=== PATIENT | male | born 1965 | race Caucasian/White ===

== ENCOUNTER 2017-09-29 18:47 | Emergency (ER) | payer OTHER ==
[2017-09-29] MEDS ORDERED: Sodium Chloride 0.9% 10 ML Syringe FLUSH PRN (19:22)
[2017-09-29] MEDS ORDERED: methylPREDNISolone Sodium Succinate 125 MG/2 ML SDV IVPUSH ONE (19:23)
[2017-09-29] MEDS ORDERED: Famotidine 20 MG/2 ML SDV IVPUSH ONE (19:23)
--- NOTE | 2017-09-29 20:42 | EDM.PDOC ---
ED HPI GENERAL MEDICAL PROBLEM - General Chief Complaint: General Stated Complaint: rash Time Seen by Provider: 09/29/17 19:10 Source of Information: Reports: Patient History Limitations: Reports: No Limitations - History of Present Illness INITIAL COMMENTS - FREE TEXT/NARRATIVE: The patient presents with a rash. He first noticed it this morning in his groin area. It has now spread. It is itchy. He has some scratching in his throat. He has no shortness of breath yet. He has reacted to peanuts before. He did not consume any or come in contact as far as he knows. He has no other allergen exposure. Onset: Gradual Duration: Hour(s): Location: Reports: Generalized Quality: Reports: Other (Burning) Severity: Mild Improves with: Reports: None Worsens with: Reports: None Associated Symptoms: Denies: Chest Pain, Cough, Fever/Chills, Headaches, Nausea/ Vomiting, Shortness of Breath - Related Data Allergies Allergy/AdvReac Type Severity Reaction Status Date / Time Penicillins Allergy Cannot Verified 09/29/17 19:02 Remember NSAIDS (Non-Steroidal AdvReac Stomach Verified 09/29/17 19:02 Anti-Inflamma Upset Home Meds: Home Meds Azithromycin [Z-Elie] 250 mg PO DAILY #4 tablet 06/11/14 [Rx] Codeine/Promethazine [Phenergan with Codeine] 5 - 10 ml PO Q6HR PRN #240 ml [Rx] Cyclobenzaprine [Flexeril] 10 mg PO BEDTIME PRN 06/11/14 [History] Docusate Sodium 100 mg PO BID PRN 06/11/14 [History] Fish Oil/DHA/EPA [Fish Oil 1,200 MG] 1 tab PO DAILY 06/11/14 [History] Hydrocodone/Acetaminophen [Hydrocodon-Acetaminophn 10-325] 1 tab PO Q6HR PRN [History] Levalbuterol Tartrate [Xopenex HFA] 2 puff INH Q6HR 06/11/14 [History] Loratadine [Claritin] 10 mg PO DAILY 06/11/14 [History] Losartan [Cozaar] 100 mg PO DAILY 06/11/14 [History] Meclizine HCl [Travel Sickness] 25 mg PO TID PRN 06/11/14 [History] Montelukast Sodium 10 mg PO DAILY 06/11/14 [History] Propranolol HCl 20 mg PO BID PRN 06/11/14 [History] Sertraline HCl 200 mg PO DAILY 06/11/14 [History] Zolpidem Tartrate 5 mg PO BEDTIME PRN 06/11/14 [History] atorvaSTATin Calcium [Atorvastatin Calcium] 40 mg PO DAILY 06/11/14 [History] busPIRone HCl [Buspirone HCl] 20 mg PO BID 06/11/14 [History] predniSONE [Prednisone] 10 mg PO DAILY 06/11/14 [History] predniSONE [Prednisone] 40 mg PO DAILY #10 tablet 09/29/17 [Rx] Past Medical History Cardiovascular History: Reports: High Cholesterol, Hypertension Respiratory History: Reports: Asthma Genitourinary History: Reports: Other (See Below) Other Genitourinary History: kidney stones, prostate/bladder infection - Past Surgical History GI Surgical History: Reports: Colonoscopy Social & Family History - Tobacco Use Smoking Status *Q: Never Smoker - Caffeine Use Caffeine Use: Reports: Soda - Recreational Drug Use Recreational Drug Use: No ED ROS GENERAL - Review of Systems Review Of Systems: See Below Constitutional: Reports: No Symptoms HEENT: Reports: No Symptoms Respiratory: Reports: No Symptoms Cardiovascular: Reports: No Symptoms Endocrine: Reports: No Symptoms GI/Abdominal: Reports: No Symptoms : Reports: No Symptoms Musculoskeletal: Reports: No Symptoms Skin: Reports: No Symptoms Neurological: Reports: No Symptoms Psychiatric: Reports: No Symptoms ED EXAM, GENERAL - Physical Exam Exam: See Below Exam Limited By: No Limitations General Appearance: Alert, No Apparent Distress Ears: Normal External Exam Nose: Normal Inspection Head: Atraumatic, Normocephalic Neck: Normal Inspection Respiratory/Chest: No Respiratory Distress, Lungs Clear, Normal Breath Sounds Cardiovascular: Regular Rate, Rhythm, No Edema, No Murmur GI/Abdominal: Soft, Non-Tender, No Organomegaly, No Mass Rectal (Males) Exam: Other (Pylenodal cyst) Back Exam: Normal Inspection Extremities: Normal Inspection Neurological: Alert, Oriented Skin Exam: Rash (Urticaria) Course - Vital Signs Last Recorded V/S: Last Vital Signs Temp 97.6 F 09/29/17 18:59 Pulse 105 H 09/29/17 18:59 Resp 16 09/29/17 18:59 BP 144/101 H 09/29/17 18:59 Pulse Ox - Orders/Labs/Meds Orders: Active Orders 24 hr Category Date Time Status Peripheral IV Care [RC] . DIRECTED Care 09/29/17 19:23 Active Sodium Chloride 0.9% [Saline Flush] Med 09/29/17 19:22 Active 10 ml FLUSH ASDIRECTED PRN Peripheral IV Insertion Adult [OM.PC] Routine Oth 09/29/17 19:22 Ordered Medication Orders Sodium Chloride (Saline Flush) 10 ml FLUSH ASDIRECTED PRN PRN Reason: Keep Vein Open Last Admin: 09/29/17 19:50 Dose: 10 ml Meds: Medications Generic Name Dose Route Start Last Admin Trade Name Freq PRN Reason Stop Dose Admin Sodium Chloride 10 ml 09/29/17 19:22 09/29/17 19:50 Saline Flush FLUSH 10 ml ASDIRECTED PRN Administration Keep Vein Open Discontinued Medications Generic Name Dose Route Start Last Admin Trade Name Freq PRN Reason Stop Dose Admin Famotidine 20 mg 09/29/17 19:23 09/29/17 19:50 Pepcid IVPUSH 09/29/17 19:24 20 mg ONETIME ONE Administration Methylprednisolone Sodium Succinate 125 mg 09/29/17 19:23 09/29/17 19:50 Solu-Medrol IVPUSH 09/29/17 19:24 125 mg ONETIME ONE Administration - Re-Assessments/Exams Free Text/Narrative Re-Assessment/Exam: 09/29/17 20:44 I ordered an IV saline lock, solu-medrol 125mg IV, and pepcid 20mg IV. He feels better. I will get him on some prednisone and pepcid with benadryl. Departure - Departure Time of Disposition: 20:45 Disposition: Home, Self-Care 01 Condition: Good Clinical Impression: Allergic reaction, urticaria - Discharge Information *PRESCRIPTION DRUG MONITORING PROGRAM REVIEWED*: Not Applicable *COPY OF PRESCRIPTION DRUG MONITORING REPORT IN PATIENT DUARTE: Not Applicable Prescriptions: predniSONE [Prednisone] 40 mg PO DAILY #10 tablet Referrals: PCP,None [Primary Care Provider] - Additional Instructions: Take the prednisone 40mg daily for 5 days. Take pepcid daily for a week. Take benadryl 50mg every 6 hours as needed for itching. Please return if you are worse. - My Orders Last 24 Hours: My Active Orders 09/29/17 19:22 Sodium Chloride 0.9% [Saline Flush] 10 ml FLUSH ASDIRECTED PRN Peripheral IV Insertion Adult [OM.PC] Routine 09/29/17 19:23 Peripheral IV Care [RC] . DIRECTED - Assessment/Plan Last 24 Hours: My Active Orders 09/29/17 19:22 Sodium Chloride 0.9% [Saline Flush] 10 ml FLUSH ASDIRECTED PRN Peripheral IV Insertion Adult [OM.PC] Routine 09/29/17 19:23 Peripheral IV Care [RC] . DIRECTED
[2017-09-29 20:58] VITALS: BP 143/96
== END 2017-09-29 21:00 | disposition home or self-care (01) ==
LOC: JD.ED 18:47
DX: L50.0 Allergic urticaria (principal); I10 Essential (primary) hypertension; E78.00 Pure hypercholesterolemia, unspecified; Z79.899 Other long term (current) drug therapy; Z88.0 Allergy status to penicillin; Z88.8 Allergy status to other drugs, medicaments and biological substances
CPT/HCPCS: 96374; 96375; 99283; J2930; J3490; J7050

== ENCOUNTER 2017-10-01 01:14 | Emergency (ER) | payer OTHER ==
[2017-10-01 01:21] VITALS: BP 164/99
[2017-10-01] MEDS ORDERED: Famotidine 20 MG/2 ML SDV IVPUSH ONE (01:45)
[2017-10-01] MEDS ORDERED: methylPREDNISolone Sodium Succinate 40 MG/1 ML SDV IVPUSH ONE (01:45)
[2017-10-01] MEDS ORDERED: Sodium Chloride 0.9% 10 ML Syringe FLUSH PRN (01:45)
[2017-10-01] MEDS ORDERED: diphenhydrAMINE 50 MG/ML SDV IVPUSH ONE (01:45)
--- NOTE | 2017-10-01 01:54 | EDM.PDOC ---
ED HPI GENERAL MEDICAL PROBLEM - General Chief Complaint: Allergic Reaction Stated Complaint: ALLERGIC REACTION AFFECTING THROAT Time Seen by Provider: 10/01/17 01:33 Source of Information: Reports: Patient History Limitations: Reports: No Limitations - History of Present Illness INITIAL COMMENTS - FREE TEXT/NARRATIVE: The patient returns early this morning from an allergic reaction and rash. The patient was seen a couple days ago for an allergic reaction with hives. He was given a dose of solu-medrol and pepcid. He was put on prednisone. He returns this morning because he feels like there is swelling in his throat and the rash has gotten a little worse. He does have an epipen but he did not have to use it. He still has not figured out what he reacted to. Onset: Gradual Duration: Day(s): Location: Reports: Generalized Quality: Reports: Other (itching) Improves with: Reports: None Worsens with: Reports: None Associated Symptoms: Reports: Shortness of Breath. Denies: Cough, Fever/Chills , Nausea/Vomiting - Related Data Allergies Allergy/AdvReac Type Severity Reaction Status Date / Time Penicillins Allergy Cannot Verified 10/01/17 01:21 Remember NSAIDS (Non-Steroidal AdvReac Stomach Verified 10/01/17 01:21 Anti-Inflamma Upset Home Meds: Home Meds Cyclobenzaprine [Flexeril] 10 mg PO BEDTIME PRN 06/11/14 [History] Docusate Sodium 100 mg PO BID PRN 06/11/14 [History] Hydrocodone/Acetaminophen [Hydrocodon-Acetaminophn 10-325] 1 tab PO Q6HR PRN [History] Levalbuterol Tartrate [Xopenex HFA] 2 puff INH Q6HR 06/11/14 [History] Loratadine [Claritin] 10 mg PO DAILY 06/11/14 [History] Losartan [Cozaar] 100 mg PO DAILY 06/11/14 [History] Meclizine HCl [Travel Sickness] 25 mg PO TID PRN 06/11/14 [History] Montelukast Sodium 10 mg PO DAILY 06/11/14 [History] Propranolol HCl 20 mg PO BID PRN 06/11/14 [History] Sertraline HCl 200 mg PO DAILY 06/11/14 [History] busPIRone HCl [Buspirone HCl] 20 mg PO DAILY 06/11/14 [History] predniSONE [Prednisone] 10 mg PO DAILY 06/11/14 [History] predniSONE [Prednisone] 40 mg PO DAILY #10 tablet 09/29/17 [Rx] Insulin Glarg,Human.Rec.Analog [Lantus] 48 unit SQ DAILY 10/01/17 [History] Saxagliptin HCl [Onglyza] 5 mg PO DAILY 10/01/17 [History] metFORMIN [Glucophage XR] 500 mg PO DAILY 10/01/17 [History] Past Medical History HEENT History: Reports: Other (See Below) Other HEENT History: sinusitis Cardiovascular History: Reports: High Cholesterol, Hypertension Respiratory History: Reports: Asthma Genitourinary History: Reports: Other (See Below) Other Genitourinary History: kidney stones, prostate/bladder infection Psychiatric History: Reports: Anxiety, Depression, PTSD - Past Surgical History GI Surgical History: Reports: Colonoscopy Social & Family History - Family History Family Medical History: Noncontributory - Tobacco Use Smoking Status *Q: Never Smoker Second Hand Smoke Exposure: No - Caffeine Use Caffeine Use: Reports: None - Recreational Drug Use Recreational Drug Use: No ED ROS ALLERGIC REACTION - Review of Systems Review Of Systems: See Below Constitutional: Reports: No Symptoms HEENT: Reports: Other (Itching in his throat and swelling) Respiratory: Reports: Shortness of Breath Cardiovascular: Reports: No Symptoms Endocrine: Reports: No Symptoms GI/Abdominal: Reports: No Symptoms : Reports: No Symptoms Musculoskeletal: Reports: No Symptoms Skin: Reports: Urticaria ED EXAM GENERAL NO PERIP PULSE - Physical Exam Exam: See Below Exam Limited By: No Limitations General Appearance: Alert, No Apparent Distress Ears: Normal External Exam Nose: Normal Inspection Throat/Mouth: Other (Dry mucus membranes but no swelling noted) Head: Atraumatic, Normocephalic Neck: Normal Inspection Respiratory/Chest: No Respiratory Distress, Lungs Clear, Normal Breath Sounds Cardiovascular: Regular Rate, Rhythm, No Edema, No Murmur GI/Abdominal: Soft, Non-Tender, No Organomegaly, No Mass Neurological: Alert, Oriented Skin Exam: Rash (generalized urticaria) Course - Vital Signs Last Recorded V/S: Last Vital Signs Temp 97.9 F 10/01/17 01:17 Pulse 111 H 10/01/17 01:17 Resp 20 10/01/17 01:17 BP 164/99 H 10/01/17 01:17 Pulse Ox 96 10/01/17 01:17 - Orders/Labs/Meds Orders: Active Orders 24 hr Category Date Time Status Peripheral IV Care [RC] . DIRECTED Care 10/01/17 01:45 Active Sodium Chloride 0.9% [Saline Flush] Med 10/01/17 01:45 Active 10 ml FLUSH ASDIRECTED PRN Peripheral IV Insertion Adult [OM.PC] Routine Oth 10/01/17 01:45 Ordered Medication Orders Sodium Chloride (Saline Flush) 10 ml FLUSH ASDIRECTED PRN PRN Reason: Keep Vein Open Last Admin: 10/01/17 01:50 Dose: 10 ml Meds: Medications Generic Name Dose Route Start Last Admin Trade Name Freq PRN Reason Stop Dose Admin Sodium Chloride 10 ml 10/01/17 01:45 10/01/17 01:50 Saline Flush FLUSH 10 ml ASDIRECTED PRN Administration Keep Vein Open Discontinued Medications Generic Name Dose Route Start Last Admin Trade Name Freq PRN Reason Stop Dose Admin Diphenhydramine HCl 50 mg 10/01/17 01:45 10/01/17 01:53 Benadryl IVPUSH 10/01/17 01:46 50 mg ONETIME ONE Administration Famotidine 20 mg 10/01/17 01:45 10/01/17 01:51 Pepcid IVPUSH 10/01/17 01:46 20 mg ONETIME ONE Administration Methylprednisolone Sodium Succinate 40 mg 10/01/17 01:45 10/01/17 01:50 Solu-Medrol IVPUSH 10/01/17 01:46 40 mg ONETIME ONE Administration - Re-Assessments/Exams Free Text/Narrative Re-Assessment/Exam: 10/01/17 01:53 I ordered an IV saline lock, solu-medrol 40mg IV, benadryl 50mg IV and pepcid 20mg IV. 10/01/17 05:57 The patient is doing better. His rash has lightened up. He has an appointment at 10. He will hand out here for awhile longer. Departure - Departure Time of Disposition: 06:00 Disposition: Home, Self-Care 01 Condition: Good Clinical Impression: Allergic reaction, urticaria - Discharge Information *PRESCRIPTION DRUG MONITORING PROGRAM REVIEWED*: Not Applicable *COPY OF PRESCRIPTION DRUG MONITORING REPORT IN PATIENT DUARTE: Not Applicable Referrals: PCP,Unknown [Primary Care Provider] - Forms: ED Department Discharge Additional Instructions: Keep taking the prednisone as prescribed. You do not need to take it today. You had a dose of solu-medrol in the ER. Take the benadryl as needed. Take the pepcid daily for a week. Please return if you are worse. - My Orders Last 24 Hours: My Active Orders 10/01/17 01:45 Peripheral IV Care [RC] . DIRECTED Sodium Chloride 0.9% [Saline Flush] 10 ml FLUSH ASDIRECTED PRN Peripheral IV Insertion Adult [OM.PC] Routine - Assessment/Plan Last 24 Hours: My Active Orders 10/01/17 01:45 Peripheral IV Care [RC] . DIRECTED Sodium Chloride 0.9% [Saline Flush] 10 ml FLUSH ASDIRECTED PRN Peripheral IV Insertion Adult [OM.PC] Routine
== END 2017-10-01 09:45 | disposition home or self-care (01) ==
LOC: JD.ED 01:14
DX: L50.0 Allergic urticaria (principal); I10 Essential (primary) hypertension; Z79.4 Long term (current) use of insulin; Z79.899 Other long term (current) drug therapy; Z88.0 Allergy status to penicillin; Z88.8 Allergy status to other drugs, medicaments and biological substances
CPT/HCPCS: 96374; 96375; 99283; J1200; J2920; J3490; J7050

== ENCOUNTER 2018-04-22 12:52 | Emergency (ER) | payer OTHER ==
[2018-04-22] MEDS ORDERED: Sodium Chloride 0.9% 10 ML Syringe FLUSH PRN (13:38)
[2018-04-22] MEDS ORDERED: Sodium Chloride 0.9% 1,000 ML IV SCH ×2 (13:45→15:45)
--- NOTE | 2018-04-22 13:46 | EDM.PDOC ---
ED HPI GENERAL MEDICAL PROBLEM - General Chief Complaint: Respiratory Problem Stated Complaint: SOB /SORES IN MOUTH Time Seen by Provider: 04/22/18 13:13 Source of Information: Reports: Patient, RN Notes Reviewed History Limitations: Reports: No Limitations - History of Present Illness INITIAL COMMENTS - FREE TEXT/NARRATIVE: Patient is a 52-year-old male who presents to the ED for the evaluation of chest congestion/dry mouth/mouth sores. He states that he thought he had the flu around 2 weeks ago but was never actually diagnosed with the flu. He states that he had a severe headache, cough, chest congestion and body aches with this. He states that his was sick with similar symptoms at this time. He did not receive the influenza vaccination this year. He states that this has been going on for around 2 weeks now and that he is also a diabetic and has been generally too weak or cannot stay up long enough to check his blood sugar at home. He states that he has been a normally well regulated diabetic patient but has been able to take his medicines as needed. The patient states that he has been drinking some water but has not eaten in over 3 days, he states he has the urge to eat but just has not eaten. He states that his urine is dark alejandra in color and he is only voiding around 4-6 times daily, he states that this is decreased from normal for him. He states his last bowel movement was around 2 days ago. At this point in time his mouth is extremely dry and he states it is difficult to talk or swallow, and is now had some resultant sores in his mouth due to this dryness. The patient states that he has some mild right lower abdominal discomfort, and notes that he still does have his appendix and gallbladder. He denies having any fevers or chills, he states he has had some nausea but no vomiting or diarrhea, he states that he does have some shortness of breath and he does have some chest discomfort with coughing. Upper Chest Pain Score (Numeric/FACES): 8 - Related Data Allergies Allergy/AdvReac Type Severity Reaction Status Date / Time Penicillins Allergy Cannot Verified 04/22/18 13:06 Remember NSAIDS (Non-Steroidal AdvReac Stomach Verified 04/22/18 13:06 Anti-Inflamma Upset Home Meds: Home Meds Cyclobenzaprine [Flexeril] 10 mg PO BEDTIME PRN 06/11/14 [History] Docusate Sodium 100 mg PO BID PRN 06/11/14 [History] Hydrocodone/Acetaminophen [Hydrocodon-Acetaminophn 10-325] 1 tab PO Q6HR [History] Levalbuterol Tartrate [Xopenex HFA] 2 puff INH Q6HR 06/11/14 [History] Loratadine [Claritin] 10 mg PO DAILY 06/11/14 [History] Losartan [Cozaar] 100 mg PO DAILY 06/11/14 [History] Meclizine HCl [Travel Sickness] 25 mg PO TID PRN 06/11/14 [History] Montelukast Sodium 10 mg PO DAILY 06/11/14 [History] Propranolol HCl 20 mg PO BID PRN 06/11/14 [History] Sertraline HCl 200 mg PO DAILY 06/11/14 [History] busPIRone HCl [Buspirone HCl] 20 mg PO DAILY 06/11/14 [History] predniSONE [Prednisone] 10 mg PO ASDIRECTED 06/11/14 [History] Insulin Glarg,Human.Rec.Analog [Lantus] 60 unit SQ DAILY 10/01/17 [History] Saxagliptin HCl [Onglyza] 5 mg PO DAILY 10/01/17 [History] glipiZIDE [Glucotrol XL] 10 mg PO DAILY 04/22/18 [History] Past Medical History HEENT History: Reports: Other (See Below) Other HEENT History: sinusitis, chronic ear infection Cardiovascular History: Reports: High Cholesterol, Hypertension Respiratory History: Reports: Asthma Gastrointestinal History: Reports: Diverticulosis Other Gastrointestinal History: abdominal pain of unknown etiology x 1 year Genitourinary History: Reports: Other (See Below) Other Genitourinary History: kidney stones, prostate/bladder infection Neurological History: Reports: Migraines Other Neuro History: back spasms Psychiatric History: Reports: Anxiety, Depression, PTSD Endocrine/Metabolic History: Reports: Diabetes, Type II - Past Surgical History GI Surgical History: Reports: Colonoscopy Musculoskeletal Surgical History: Reports: Other (See Below) Other Musculoskeletal Surgeries/Procedures:: chronic pain, back injuries, Thoracic and lumbar fracture Social & Family History - Family History Family Medical History: Noncontributory - Tobacco Use Smoking Status *Q: Never Smoker - Caffeine Use Caffeine Use: Reports: Coffee, Soda - Recreational Drug Use Recreational Drug Use: No ED ROS GENERAL - Review of Systems Review Of Systems: See Below Constitutional: Reports: Malaise, Weakness, Decreased Appetite HEENT: Reports: Throat Pain. Denies: Throat Swelling Respiratory: Reports: Shortness of Breath, Cough. Denies: Wheezing, Sputum Cardiovascular: Reports: Chest Pain (chest discomfort from coughing) Endocrine: Reports: Other (hx/ of diabetes) GI/Abdominal: Reports: Abdominal Pain (RLQ), Decreased Appetite, Nausea. Denies : Constipation, Diarrhea, Vomiting : Reports: Other (decreased urinary output). Denies: Dysuria, Flank Pain Musculoskeletal: Reports: Other (general muscle aches) Skin: Reports: No Symptoms Neurological: Reports: No Symptoms Psychiatric: Reports: No Symptoms Hematologic/Lymphatic: Reports: No Symptoms Immunologic: Reports: No Symptoms ED EXAM, GENERAL - Physical Exam Exam: See Below Exam Limited By: No Limitations General Appearance: Alert, WD/WN, Mild Distress Eye Exam: Bilateral Eye: EOMI, Normal Inspection, PERRL Ears: Normal External Exam Nose: Normal Inspection Throat/Mouth: Normal Teeth, Normal Voice, No Airway Compromise, Other ( Oropharynx is severely dry, tongue is severely dry.) Head: Atraumatic, Normocephalic Neck: Normal Inspection, Supple, Non-Tender, Full Range of Motion Respiratory/Chest: No Respiratory Distress, Lungs Clear, Normal Breath Sounds, No Accessory Muscle Use, Chest Non-Tender Cardiovascular: Normal Peripheral Pulses, Regular Rate, Rhythm, No Murmur GI/Abdominal: Normal Bowel Sounds, Soft, No Distention, Tender (generalized tenderness throughout abdomen) Extremities: Normal Inspection, Normal Capillary Refill Neurological: Alert, Oriented, Normal Cognition, No Motor/Sensory Deficits Psychiatric: Normal Affect, Normal Mood Skin Exam: Warm, Dry, Intact, Normal Color, No Rash Course - Vital Signs Last Recorded V/S: Last Vital Signs Temp 95.9 F 04/22/18 13:01 Pulse 86 04/22/18 13:01 Resp 20 04/22/18 13:01 BP 124/76 04/22/18 13:01 Pulse Ox 93 L 04/22/18 13:01 - Orders/Labs/Meds Orders: Active Orders 24 hr Category Date Time Status Peripheral IV Care [RC] . DIRECTED Care 04/22/18 13:39 Active Chest 1V Frontal [CR] Stat Exams 04/22/18 13:36 Taken UA W/MICROSCOPIC [URIN] Stat Lab 04/22/18 13:36 Ordered Sodium Chloride 0.9% [Normal Saline] 1,000 ml Med 04/22/18 13:45 Active IV ASDIRECTED Sodium Chloride 0.9% [Normal Saline] 1,000 ml Med 04/22/18 15:45 Ordered IV ASDIRECTED Sodium Chloride 0.9% [Saline Flush] Med 04/22/18 13:38 Active 10 ml FLUSH ASDIRECTED PRN Peripheral IV Insertion Adult [OM.PC] Routine Oth 04/22/18 13:38 Ordered Medication Orders Sodium Chloride (Normal Saline) 1,000 mls @ 999 mls/hr IV ASDIRECTED MURIEL Last Admin: 04/22/18 14:47 Dose: 999 mls/hr Sodium Chloride (Normal Saline) 1,000 mls @ 999 mls/hr IV ASDIRECTED MURIEL Last Admin: 04/22/18 15:50 Dose: 999 mls/hr Sodium Chloride (Saline Flush) 10 ml FLUSH ASDIRECTED PRN PRN Reason: Keep Vein Open Last Admin: 04/22/18 13:15 Dose: 10 ml Labs: Laboratory Tests 04/22/18 04/22/18 04/22/18 Range/Units 13:15 13:15 13:15 WBC 5.86 (4.23-9.07) K/mm3 RBC 6.06 (4.63-6.08) M/mm3 Hgb 15.2 (13.7-17.5) gm/L Hct 43.9 (40.1-51.0) % MCV 72.4 L (79.0-92.2) fl MCH 25.1 L (25.7-32.2) pg MCHC 34.6 (32.2-35.5) g/dl RDW Std Deviation 38.7 (35.1-43.9) fL Plt Count 197 (163-337) K/mm3 MPV 9.2 L (9.4-12.3) fl Neutrophils % (Manual) 63 H (40-60) % Band Neutrophils % 0 (0-10) % Lymphocytes % (Manual) 32 (20-40) % Atypical Lymphs % 0 % Monocytes % (Manual) 5 (2-10) % Eosinophils % (Manual) 0 L (0.8-7.0) % Basophils % (Manual) 0 L (0.2-1.2) Platelet Estimate Adequate Poikilocytosis 1+ slight Microcytosis 1+ slight Ovalocytes 1+ slight RBC Morph Comment Not Reportable Sodium 136 (136-145) mEq/L Potassium 4.3 (3.5-5.1) mEq/L Chloride 98 (98-107) mEq/L Carbon Dioxide 27 (21-32) mEq/L Anion Gap 15.3 H (5-15) BUN 29 H (7-18) mg/dL Creatinine 1.3 (0.7-1.3) mg/dL Est Cr Clr Drug Dosing 74.27 mL/min Estimated GFR (MDRD) 58 (>60) mL/min BUN/Creatinine Ratio 22.3 H (14-18) Glucose 169 H (74-106) mg/dL Calcium 9.0 (8.5-10.1) mg/dL Total Bilirubin 0.9 (0.2-1.0) mg/dL AST 44 H (15-37) U/L ALT 62 (16-63) U/L Alkaline Phosphatase 86 (46-116) U/L Total Protein 7.1 (6.4-8.2) g/dl Albumin 3.3 L (3.4-5.0) g/dl Globulin 3.8 gm/dL Albumin/Globulin Ratio 0.9 L (1-2) Ketones 1.16 (0.0-0.3) mM Meds: Medications Generic Name Dose Route Start Last Admin Trade Name Freq PRN Reason Stop Dose Admin Sodium Chloride 1,000 mls @ 999 mls/hr 04/22/18 13:45 04/22/18 14:47 Normal Saline IV 999 mls/hr ASDIRECTED MURIEL Administration Sodium Chloride 1,000 mls @ 999 mls/hr 04/22/18 15:45 04/22/18 15:50 Normal Saline IV 999 mls/hr ASDIRECTED MURIEL Administration Sodium Chloride 10 ml 04/22/18 13:38 04/22/18 13:15 Saline Flush FLUSH 10 ml ASDIRECTED PRN Administration Keep Vein Open - Re-Assessments/Exams Free Text/Narrative Re-Assessment/Exam: 04/22/18 13:49 Patient presents to the ED for the evaluation of general malaise, shortness of breath, sores in mouth. Have ordered IV fluid bolus, CBC, CMP, UA, influenza screen, chest x-ray and serum ketones for further evaluation. It is likely that he is severely dehydrated from not being able to eat or drink much for the last couple days, I am worried as he is diabetic; that he may be in worse shape than he thinks he is. 04/22/18 14:00 Kristina, RN informs me that she did a bedside glucose and it was 183. 04/22/18 14:23 Some of patient's labs have returned; influenza screen is negative, his CBC was within normal limits, serum ketones at 1.1, CMP showed an elevated anion gap and increased BUN which could suggest dehydration. Patient's chest x-ray was reviewed and does not demonstrate any acute pulmonary changes however official radiology read is pending. UA is still pending. 04/22/18 15:17 Pt re-assessed at bedside, he states that he is feeling a little bit better, but it is still painful to swallow due to mouth dryness, I have given him oral fluids to see if this helps his mouth dryness, He will likely get one more bag of fluids in the ED today after the first is done. 04/22/18 17:18 Patient was reassessed at bedside and he states that he feels better after 2 L of fluid. He was able to tolerate some chocolate milk at this time and I will advise him to stick to a clear liquid-soft diet over the next 24-48 hours, to see if this doesn't help him. He states that he was a little bit of short of breath after sitting up but feels that this is due to inactivity for the last 3- 4 days. 04/22/18 17:31 Patient was unable to give us a urinary sample at this time his chest x-ray as read by the read states early atelectatic changes and or early infiltrative changes with in both lung bases, greater on the right. However I will advise him to do some watchful waiting and caution him to be re-evaluated if his shortness of breath does not resolve in the next week or so, or if he should start developing any fever/chills or increased sputum production as this would be the sign of the start of pneumonia. Will recommend that he get up and do more activities as tolerated. Departure - Departure Time of Disposition: 17:19 Disposition: Home, Self-Care 01 Condition: Fair Clinical Impression: Dehydration, Shortness of breath - Discharge Information *PRESCRIPTION DRUG MONITORING PROGRAM REVIEWED*: No *COPY OF PRESCRIPTION DRUG MONITORING REPORT IN PATIENT DUARTE: No Instructions: Shortness of Breath, Adult, [id number], Dehydration, Adult Referrals: Madyson Mendoza MD [Primary Care Provider] - Forms: ED Department Discharge Additional Instructions: You have been evaluated in the ED today for your shortness of breath/mouth dryness/mouth sores. Your labs did demonstrate that you were dehydrated and you were given 2 bags of IV fluid in correction of this. Your influenza swab was negative. Your dry mouth and mouth sores are likely due to the dehydration. These should resolve by themselves as you hydrate herself. Please increase your oral fluid intake over the next 24-48 hours and stick to a clear liquid to soft diet as tolerated. Even if you do not feel as if you are hungry please eat something small as this will provide nourishment for your body. Your chest x-ray did not demonstrate any acute signs of pneumonia or fluid overload. Please return to the ED if your symptoms should change or worsen - My Orders Last 24 Hours: My Active Orders 04/22/18 13:36 Chest 1V Frontal [CR] Stat UA W/MICROSCOPIC [URIN] Stat 04/22/18 13:38 Sodium Chloride 0.9% [Saline Flush] 10 ml FLUSH ASDIRECTED PRN Peripheral IV Insertion Adult [OM.PC] Routine 04/22/18 13:39 Peripheral IV Care [RC] . DIRECTED 04/22/18 13:45 Sodium Chloride 0.9% [Normal Saline] 1,000 ml IV ASDIRECTED 04/22/18 15:45 Sodium Chloride 0.9% [Normal Saline] 1,000 ml IV ASDIRECTED - Assessment/Plan Last 24 Hours: My Active Orders 04/22/18 13:36 Chest 1V Frontal [CR] Stat UA W/MICROSCOPIC [URIN] Stat 04/22/18 13:38 Sodium Chloride 0.9% [Saline Flush] 10 ml FLUSH ASDIRECTED PRN Peripheral IV Insertion Adult [OM.PC] Routine 04/22/18 13:39 Peripheral IV Care [RC] . DIRECTED 04/22/18 13:45 Sodium Chloride 0.9% [Normal Saline] 1,000 ml IV ASDIRECTED 04/22/18 15:45 Sodium Chloride 0.9% [Normal Saline] 1,000 ml IV ASDIRECTED
[2018-04-22 17:44] VITALS: BP 128/79
--- NOTE | 2018-04-25 08:14 | CR ---
Chest: Portable view of the chest was obtained. Comparison: Prior chest x-ray of 12/02/17. Patchy areas of increased density are felt to be present within the perihilar regions compatible with bronchitis. Lungs otherwise are clear with no pneumonia being seen. Heart size and mediastinum are normal. Bony structures are grossly intact. Previous left shoulder surgery is noted. Impression: 1. Findings as noted above which is felt compatible with bronchitis. No pneumonia is seen. Diagnostic code #3 I agree with preliminary report from [facility], finalized on 04/22/18, 6:28 PM Central Time
== END 2018-04-22 17:40 | disposition home or self-care (01) ==
LOC: JD.ED 12:52
DX: E86.0 Dehydration (principal); R06.02 Shortness of breath; E78.00 Pure hypercholesterolemia, unspecified; I10 Essential (primary) hypertension; J45.909 Unspecified asthma, uncomplicated; F41.9 Anxiety disorder, unspecified; F32.9 Major depressive disorder, single episode, unspecified; E11.9 Type 2 diabetes mellitus without complications; Z79.899 Other long term (current) drug therapy; Z79.4 Long term (current) use of insulin
CPT/HCPCS: 36415; 71045; 80053; 81001; 82009; 82962; 85007; 85027; 87804; 96360; 96361; 99283; J7040

== ENCOUNTER 2018-11-09 14:15 | Emergency (ER) | payer OTHER ==
[2018-11-09 14:22] VITALS: BP 138/91; PULSE 95
--- NOTE | 2018-11-09 18:43 | EDM.PDOC ---
ED HPI GENERAL MEDICAL PROBLEM - General Chief Complaint: ENT Problem Stated Complaint: MULTIPLE ISSUES Time Seen by Provider: 11/09/18 17:22 Source of Information: Reports: Patient, RN Notes Reviewed History Limitations: Reports: No Limitations - History of Present Illness INITIAL COMMENTS - FREE TEXT/NARRATIVE: Patient is a 53-year-old male presents to the ED for the evaluation of left lower jaw pain. He notes this has been present for about one week now. He most recently came back from [place] visiting family on an airplane, for which he states there were multiple people coughing and hacking. He notes that he has some general malaise and a mild cough, and feels feverish but has not been able to take a temperature at home. He states that the pain is in his left ear, and radiates down his left jaw and into his left neck. Patient denies any sort of sore throat, but states he had some mild discomfort with swallowing a few days ago. The patient's primary care provider is in [place]. He states that he took a home prescription of some hydrocodone and this seems to take the edge off a little bit but then it comes back. He would characterize the pain as an ache or burning in nature. Left Ear Pain Score (Numeric/FACES): 5 - Related Data Allergies Allergy/AdvReac Type Severity Reaction Status Date / Time Penicillins Allergy Cannot Verified 11/09/18 14:23 Remember NSAIDS (Non-Steroidal AdvReac Stomach Verified 11/09/18 14:23 Anti-Inflamma Upset Home Meds: Home Meds Cyclobenzaprine [Flexeril] 10 mg PO BEDTIME PRN 06/11/14 [History] Docusate Sodium 100 mg PO BID PRN 06/11/14 [History] Hydrocodone/Acetaminophen [Hydrocodon-Acetaminophn 10-325] 1 tab PO Q6HR [History] Levalbuterol Tartrate [Xopenex HFA] 2 puff INH Q6HR 06/11/14 [History] Loratadine [Claritin] 10 mg PO DAILY 06/11/14 [History] Losartan [Cozaar] 100 mg PO DAILY 06/11/14 [History] Meclizine HCl [Travel Sickness] 25 mg PO TID PRN 06/11/14 [History] Montelukast Sodium 10 mg PO DAILY 06/11/14 [History] Propranolol HCl 20 mg PO BID PRN 06/11/14 [History] Sertraline HCl 200 mg PO DAILY 06/11/14 [History] busPIRone HCl [Buspirone HCl] 20 mg PO DAILY 06/11/14 [History] predniSONE [Prednisone] 10 mg PO ASDIRECTED 06/11/14 [History] Insulin Glarg,Human.Rec.Analog [Lantus] 60 unit SQ DAILY 10/01/17 [History] glipiZIDE [Glucotrol XL] 10 mg PO DAILY 04/22/18 [History] Past Medical History HEENT History: Reports: Other (See Below) Other HEENT History: sinusitis, chronic ear infection Cardiovascular History: Reports: High Cholesterol, Hypertension Respiratory History: Reports: Asthma Gastrointestinal History: Reports: Diverticulosis Other Gastrointestinal History: abdominal pain of unknown etiology x 1 year Genitourinary History: Reports: Other (See Below) Other Genitourinary History: kidney stones, prostate/bladder infection Neurological History: Reports: Migraines Other Neuro History: back spasms Psychiatric History: Reports: Anxiety, Depression, PTSD Endocrine/Metabolic History: Reports: Diabetes, Type II - Past Surgical History GI Surgical History: Reports: Colonoscopy Musculoskeletal Surgical History: Reports: Other (See Below) Other Musculoskeletal Surgeries/Procedures:: chronic pain, back injuries, Thoracic and lumbar fracture Social & Family History - Family History Family Medical History: Noncontributory - Tobacco Use Smoking Status *Q: Never Smoker Second Hand Smoke Exposure: No - Caffeine Use Caffeine Use: Reports: Coffee, Soda - Recreational Drug Use Recreational Drug Use: No ED ROS ENT - Review of Systems Review Of Systems: See Below Constitutional: Reports: Malaise, Weakness, Other (Hot and cold flashes) HEENT: Reports: Ear Pain (Left), Other (Left sided jaw pain, history of TMJ on that side). Denies: Throat Pain Respiratory: Reports: No Symptoms Cardiovascular: Reports: No Symptoms Endocrine: Reports: No Symptoms GI/Abdominal: Reports: No Symptoms : Reports: No Symptoms Musculoskeletal: Reports: Joint Pain (Left TMJ) Skin: Denies: Rash Neurological: Reports: No Symptoms Psychiatric: Reports: No Symptoms Hematologic/Lymphatic: Reports: No Symptoms Immunologic: Reports: No Symptoms ED EXAM, ENT - Physical Exam Exam: See Below Exam Limited By: No Limitations General Appearance: Alert, WD/WN, No Apparent Distress Eye Exam: Bilateral Eye: EOMI, Normal Inspection, PERRL Ears: Normal External Exam, Normal Canal, Hearing Grossly Normal, Normal TMs Nose: Normal Inspection, Normal Mucousa, No Blood Mouth/Throat: Normal Inspection, Normal Gums, Normal Lips, Normal Oropharynx, Normal Teeth Head: Atraumatic, Normocephalic Neck: Normal Inspection, Supple, Full Range of Motion, Tender Lateral (Posterior ) Respiratory/Chest: No Respiratory Distress, Lungs Clear, Normal Breath Sounds, No Accessory Muscle Use, Chest Non-Tender Cardiovascular: Normal Peripheral Pulses, Regular Rate, Rhythm, No Murmur GI/Abdominal: Normal Bowel Sounds, Soft, Non-Tender, No Distention, No Mass Back: Normal Inspection, Full Range of Motion Extremities: Normal Inspection, Normal Capillary Refill Neurological: Alert, Oriented, Normal Cognition, No Motor/Sensory Deficits Psychiatric: Normal Affect, Normal Mood Skin: Warm, Dry, Intact, Normal Color, No Rash Course - Vital Signs Last Recorded V/S: Last Vital Signs Temp 97.8 F 11/09/18 14:22 Pulse 95 11/09/18 14:22 Resp 20 11/09/18 14:22 BP 138/91 H 11/09/18 14:22 Pulse Ox 95 11/09/18 14:22 - Orders/Labs/Meds Labs: Laboratory Tests 11/09/18 11/09/18 11/09/18 Range/Units 18:13 18:13 18:13 WBC 8.58 (4.23-9.07) K/mm3 RBC 6.07 (4.63-6.08) M/mm3 Hgb 15.4 (13.7-17.5) gm/dl Hct 44.7 (40.1-51.0) % MCV 73.6 L (79.0-92.2) fl MCH 25.4 L (25.7-32.2) pg MCHC 34.5 (32.2-35.5) g/dl RDW Std Deviation 38.8 (35.1-43.9) fL Plt Count 249 (163-337) K/mm3 MPV 8.8 L (9.4-12.3) fl Neut % (Auto) 85.4 H (34.0-67.9) % Lymph % (Auto) 9.2 L (21.8-53.1) % Brantley % (Auto) 4.8 L (5.3-12.2) % Eos % (Auto) 0.2 L (0.8-7.0) Baso % (Auto) 0.2 (0.1-1.2) % Neut # (Auto) 7.32 H (1.78-5.38) K/mm3 Lymph # (Auto) 0.79 L (1.32-3.57) K/mm3 Brantley # (Auto) 0.41 (0.30-0.82) K/mm3 Eos # (Auto) 0.02 L (0.04-0.54) K/mm3 Baso # (Auto) 0.02 (0.01-0.08) K/mm3 Manual Slide Review Abnormal smear Sodium 138 (136-145) mEq/L Potassium 4.8 (3.5-5.1) mEq/L Chloride 102 (98-107) mEq/L Carbon Dioxide 27 (21-32) mEq/L Anion Gap 13.8 (5-15) BUN 13 (7-18) mg/dL Creatinine 1.1 (0.7-1.3) mg/dL Est Cr Clr Drug Dosing 86.76 mL/min Estimated GFR (MDRD) > 60 (>60) mL/min BUN/Creatinine Ratio 11.8 L (14-18) Glucose 188 H (74-106) mg/dL Calcium 9.7 (8.5-10.1) mg/dL Total Bilirubin 0.6 (0.2-1.0) mg/dL AST 12 L (15-37) U/L ALT 30 (16-63) U/L Alkaline Phosphatase 112 (46-116) U/L Total Protein 7.8 (6.4-8.2) g/dl Albumin 3.8 (3.4-5.0) g/dl Globulin 4.0 gm/dL Albumin/Globulin Ratio 1.0 (1-2) Monoscreen Negative (NEGATIVE) - Re-Assessments/Exams Free Text/Narrative Re-Assessment/Exam: 11/09/18 18:45 Patient presents to the ED for the evaluation of generalized malaise, left ear pain with radiation to his jaw. It is unclear as to what is causing this jaw pain although it might be a flare of his TMJ. He may also have a viral upper respiratory illness due to his close encounter with sick people on a plane, did order CBC, CMP, and a mono screen to rule out any other underlying etiology. 11/09/18 20:16 Patient's labs are done and returned no acute abnormalities at this time, is likely that his pain is due to a viral illness in nature we'll discharge home with general recommendations. Departure - Departure Time of Disposition: 20:16 Disposition: Home, Self-Care 01 Condition: Fair Clinical Impression: Left ear pain, Pain in jaw not originating in temporomandibular joint - Discharge Information *PRESCRIPTION DRUG MONITORING PROGRAM REVIEWED*: No *COPY OF PRESCRIPTION DRUG MONITORING REPORT IN PATIENT DUARTE: No Instructions: Pain Without a Known Cause Referrals: Madyson Mendoza MD [Primary Care Provider] - Forms: ED Department Discharge Additional Instructions: You were evaluated in the ED today for your left sided ear pain and jaw pain. Laboratory evaluation done tonight demonstrate no acute abnormalities. Your symptoms may be due to a virus in nature, viruses need to run their course , however if your symptoms worsen you should seek care for re-evaluation. Please take your previously prescribed hydrocodone for pain relief. Please return to the ED if your symptoms change or worsen.
== END 2018-11-09 20:30 | disposition home or self-care (01) ==
LOC: JD.ED 14:15
DX: R68.84 Jaw pain (principal); H92.02 Otalgia, left ear; I10 Essential (primary) hypertension; E11.9 Type 2 diabetes mellitus without complications; J45.909 Unspecified asthma, uncomplicated; F41.9 Anxiety disorder, unspecified; F32.9 Major depressive disorder, single episode, unspecified; Z88.0 Allergy status to penicillin; Z88.8 Allergy status to other drugs, medicaments and biological substances; Z79.4 Long term (current) use of insulin; Z79.899 Other long term (current) drug therapy
CPT/HCPCS: 36415; 80053; 85025; 86308; 96372; 99283

== ENCOUNTER 2019-10-13 14:35 | Emergency (ER) | payer SELFPAY ==
[2019-10-13 15:04] VITALS: BP 136/89; PULSE 81
--- NOTE | 2019-10-13 15:32 | EDM.PDOC ---
ED HPI GENERAL MEDICAL PROBLEM - General Chief Complaint: Bite:Animal, Insect Stated Complaint: L ARM SKIN COMPLAINT Time Seen by Provider: 10/13/19 14:58 Source of Information: Reports: Patient, RN Notes Reviewed History Limitations: Reports: No Limitations - History of Present Illness INITIAL COMMENTS - FREE TEXT/NARRATIVE: Patient is a 54-year-old male who presents to the ED for evaluation of a cat bite on his left arm. Patient states that his house cat, got entrapped in a cabinet pole, and he went to free the cat and the cat bit him as he was distressed. This resulted in a few lacerations on his left posterior forearm. No active bleeding appreciated. He did cleanse the area with soap and water. He states he still can move his finger in all range of motion, is not having any difficulty otherwise. Patient states that he is up-to-date on his Tdap, and states the cat is also up-to-date on his vaccines. He denies any fevers or chills, cough/shortness of breath, nausea/vomiting/diarrhea. He states that he is penicillin allergic, states he had a rash. 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: Reports: Other (see below) Left Arm Pain Score (Numeric/FACES): 5 - Related Data Allergies Allergy/AdvReac Type Severity Reaction Status Date / Time aspirin Allergy Severe Shortness Verified 10/13/19 14:58 of Breath bee venom protein (honey bee) Allergy Severe Shortness Verified 10/13/19 14:58 of Breath diatrizoate meglumine Allergy Severe Hives Verified 10/13/19 14:58 [From Gastrografin] diatrizoate sodium Allergy Severe Hives Verified 10/13/19 14:58 [From Gastrografin] Penicillins Allergy Severe Cannot Verified 10/13/19 14:58 Remember tree nut Allergy Severe Anaphylactic Verified 10/13/19 14:58 Shock NSAIDS (Non-Steroidal AdvReac Severe Stomach Verified 10/13/19 14:58 Anti-Inflamma Upset Home Meds: Home Meds Cyclobenzaprine [Flexeril] 10 mg PO BEDTIME PRN 06/11/14 [History] Docusate Sodium 100 mg PO BID PRN 06/11/14 [History] Hydrocodone/Acetaminophen [Hydrocodon-Acetaminophn 10-325] 1 tab PO Q6HR 06/11/14 [History] Levalbuterol Tartrate [Xopenex HFA] 2 puff INH Q6HR 06/11/14 [History] Loratadine [Claritin] 10 mg PO DAILY 06/11/14 [History] Losartan [Cozaar] 100 mg PO DAILY 06/11/14 [History] Meclizine HCl [Travel Sickness] 25 mg PO TID PRN 06/11/14 [History] Montelukast Sodium 10 mg PO DAILY 06/11/14 [History] Propranolol HCl 20 mg PO BID PRN 06/11/14 [History] Sertraline HCl 200 mg PO DAILY 06/11/14 [History] busPIRone HCl [Buspirone HCl] 20 mg PO DAILY 06/11/14 [History] predniSONE [Prednisone] 10 mg PO ASDIRECTED 06/11/14 [History] Insulin Glarg,Human.Rec.Analog [Lantus] 60 unit SQ DAILY 10/01/17 [History] glipiZIDE [Glucotrol XL] 10 mg PO DAILY 04/22/18 [History] Alogliptin Benzoate [Alogliptin] 12.5 mg PO DAILY 05/01/19 [History] Gabapentin [Neurontin] 300 mg PO TID 05/01/19 [History] atorvaSTATin [Lipitor] 10 mg PO DAILY 05/01/19 [History] diazePAM [Valium.] 5 mg PO ASDIRECTED 05/01/19 [History] diphenhydrAMINE [Benadryl] 25 mg PO DAILY 05/01/19 [History] methylPREDNISolone [Methylprednisolone] 32 mg PO ONETIME 05/01/19 [History] Clindamycin HCl 300 mg PO TID 7 Days #21 capsule 10/13/19 [Rx] Sulfamethoxazole/Trimethoprim [Bactrim Ds Tablet] 1 tab PO BID 7 Days #14 tablet 10/13/19 [Rx] Past Medical History HEENT History: Reports: Other (See Below) Other HEENT History: sinusitis, chronic ear infection Cardiovascular History: Reports: High Cholesterol, Hypertension Respiratory History: Reports: Asthma Gastrointestinal History: Reports: Diverticulosis Other Gastrointestinal History: abdominal pain of unknown etiology x 1 year Genitourinary History: Reports: Other (See Below) Other Genitourinary History: kidney stones, prostate/bladder infection Neurological History: Reports: Migraines Other Neuro History: back spasms Psychiatric History: Reports: Anxiety, Depression, PTSD Endocrine/Metabolic History: Reports: Diabetes, Type II - Past Surgical History GI Surgical History: Reports: Colonoscopy Musculoskeletal Surgical History: Reports: Other (See Below) Other Musculoskeletal Surgeries/Procedures:: chronic pain, back injuries, Thoracic and lumbar fracture Social & Family History - Family History Family Medical History: Noncontributory - Tobacco Use Smoking Status *Q: Never Smoker - Caffeine Use Caffeine Use: Reports: Coffee, Soda - Recreational Drug Use Recreational Drug Use: No ED ROS GENERAL - Review of Systems Review Of Systems: Comprehensive ROS is negative, except as noted in HPI. ED EXAM, ANIMAL BITE - Physical Exam Exam: See Below Exam Limited By: No Limitations General Appearance: Alert, WD/WN, No Apparent Distress Eye Exam: Bilateral Eye: EOMI, Normal Inspection, PERRL Respiratory/Chest: No Respiratory Distress, Lungs Clear, Normal Breath Sounds, No Accessory Muscle Use, Chest Non-Tender Cardiovascular: Normal Peripheral Pulses, Regular Rate, Rhythm, No Murmur Peripheral Pulses: 2+: Radial (L), Radial (R) Extremities: Normal Range of Motion, Normal Capillary Refill, Other (Multiple small lacerations noted to the left posterior forearm. Dried blood associated with these wounds.) Neurological: Alert, Oriented, Normal Cognition, No Motor/Sensory Deficits Psychiatric: Normal Affect, Normal Mood Skin Exam: Normal Color, Warm/Dry, Other (Several wounds on the left posterior forearm, mostly dry blood noted. These do appear clean, patient did cleanse use with soap and water and applied bacitracin prior to coming to the ER.) Course - Vital Signs Last Recorded V/S: Last Vital Signs Temp 98.3 F 10/13/19 15:01 Pulse 81 10/13/19 15:01 Resp 20 10/13/19 15:01 BP 136/89 10/13/19 15:01 Pulse Ox 96 10/13/19 15:01 - Re-Assessments/Exams Free Text/Narrative Re-Assessment/Exam: 10/13/19 15:31 Patient presents to the ED for his injury after his cat bit him. He will be placed on Clinda and Bactrim d/t his penicillin allergy. Departure - Departure Time of Disposition: 15:32 Disposition: Home, Self-Care 01 Condition: Good Clinical Impression: Cat bite involving extremity - Discharge Information *PRESCRIPTION DRUG MONITORING PROGRAM REVIEWED*: No *COPY OF PRESCRIPTION DRUG MONITORING REPORT IN PATIENT DUARTE: No Prescriptions: Sulfamethoxazole/Trimethoprim [Bactrim Ds Tablet] 1 tab PO BID 7 Days #14 tablet Clindamycin HCl 300 mg PO TID 7 Days #21 capsule Instructions: Animal Bite, Adult, [id number] Referrals: Thuan Ag MD [Primary Care Provider] - Additional Instructions: You were seen in the ER today for your cat bite. The area was cleansed, and he did have a bandage placed. Please keep watch of this area and clean it with warm soapy water and apply bacitracin as needed topically. You will be started on 2 different antibiotics due to your penicillin allergy 1 will be clindamycin 3 times daily for the next 7 days, the other will be Bactrim, or trimethoprim/sulfa 2 times a day for the next 7 days. Please take these medications until they are all gone. Please return to the ER if the area seems to be worsening. Sepsis Event Note (ED) - Evaluation Sepsis Screening Result: No Definite Risk - Focused Exam Vital Signs: Vital Signs Temp Pulse Resp BP Pulse Ox 10/13/19 15:01 98.3 F 81 20 136/89 96
== END 2019-10-13 15:00 | disposition home or self-care (01) ==
LOC: JD.ED 14:35 → SUPCPDRO 14:35 → JD.ED 15:00
DX: S51.852A Open bite of left forearm, initial encounter (principal); E78.00 Pure hypercholesterolemia, unspecified; I10 Essential (primary) hypertension; J45.909 Unspecified asthma, uncomplicated; F41.9 Anxiety disorder, unspecified; F32.9 Major depressive disorder, single episode, unspecified; E11.9 Type 2 diabetes mellitus without complications; Z79.4 Long term (current) use of insulin; Z79.899 Other long term (current) drug therapy; Z88.0 Allergy status to penicillin; Z91.018 Allergy to other foods; Z88.8 Allergy status to other drugs, medicaments and biological substances; Z88.6 Allergy status to analgesic agent; Z91.030 Bee allergy status; W55.01XA Bitten by cat, initial encounter
CPT/HCPCS: 99283

== ENCOUNTER 2020-04-29 21:31 | Emergency (ER) | payer OTHER ==
[2020-04-29 21:49] VITALS: BP 154/96; PULSE 113
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
--- NOTE | 2020-04-30 08:58 | CR ---
Left ankle: 4 views of the left ankle were obtained. Comparison: Prior left ankle exam of 12/02/17. Well-corticated bony density is noted off the inferior fibula which is stable. Ankle mortise is symmetric. Minimal spur is noted at the attachment of the Achilles tendon and calcaneus. Small bony density is seen off the distal calcaneus which is well-corticated but an interval change from prior exam compatible with old injury. No definite acute abnormality is appreciated. Impression: 1. Small calcaneal spur. 2. Several bony densities as noted above likely due to old injury. 3. Nothing acute is definitely appreciated. Diagnostic code #2
== END 2020-04-29 22:40 | disposition home or self-care (01) ==
LOC: JD.ED 21:31
DX: M25.572 Pain in left ankle and joints of left foot (principal); G89.29 Other chronic pain; E78.00 Pure hypercholesterolemia, unspecified; I10 Essential (primary) hypertension; J45.909 Unspecified asthma, uncomplicated; E11.9 Type 2 diabetes mellitus without complications; Z88.8 Allergy status to other drugs, medicaments and biological substances; Z91.030 Bee allergy status; Z88.0 Allergy status to penicillin; Z91.018 Allergy to other foods; Z88.6 Allergy status to analgesic agent; Z79.4 Long term (current) use of insulin; Z79.899 Other long term (current) drug therapy
CPT/HCPCS: 73610-26-LT; 73610-LT; 99282; 99283

== ENCOUNTER 2021-03-30 16:46 | Emergency (ER) | payer OTHER ==
[2021-03-30 17:28] VITALS: BP 169/110; PULSE 98
[2021-03-30] MEDS ORDERED: Levofloxacin 250 MG Tab PO ONE (17:50)
== END 2021-03-30 18:11 | disposition home or self-care (01) ==
LOC: JD.ED 16:46
DX: N45.1 Epididymitis (principal); E78.00 Pure hypercholesterolemia, unspecified; I10 Essential (primary) hypertension; J45.909 Unspecified asthma, uncomplicated; E66.9 Obesity, unspecified; Z68.29 Body mass index [BMI] 29.0-29.9, adult; Z88.8 Allergy status to other drugs, medicaments and biological substances; Z91.030 Bee allergy status; Z91.018 Allergy to other foods; Z88.6 Allergy status to analgesic agent; Z88.0 Allergy status to penicillin; Z79.4 Long term (current) use of insulin; Z79.899 Other long term (current) drug therapy
CPT/HCPCS: 99283; A9270

== ENCOUNTER 2021-05-26 14:38 | Emergency (ER) | payer OTHER ==
[2021-05-26 16:19] VITALS: BP 132/87; PULSE 89
== END 2021-05-26 16:19 | disposition home or self-care (01) ==
LOC: JD.ED 14:38
DX: S09.90XA Unspecified injury of head, initial encounter (principal); E78.00 Pure hypercholesterolemia, unspecified; I10 Essential (primary) hypertension; E11.9 Type 2 diabetes mellitus without complications; Z91.030 Bee allergy status; Z91.048 Other nonmedicinal substance allergy status; Z88.8 Allergy status to other drugs, medicaments and biological substances; Z79.899 Other long term (current) drug therapy; W18.30XA Fall on same level, unspecified, initial encounter
CPT/HCPCS: 70450; 70450-26; 72040; 72040-26; 99284; 99284-25

== ENCOUNTER 2021-10-24 15:46 | Emergency (ER) | payer OTHER ==
[2021-10-24] MEDS ORDERED: Ketorolac 30 MG/ML SDV IVPUSH ONE (16:21)
[2021-10-24] MEDS ORDERED: Sodium Chloride 0.9% 10 ML Syringe FLUSH PRN (16:21)
[2021-10-24] MEDS ORDERED: Metoclopramide 10 MG/2 ML SDV IVPUSH ONE (16:21)
[2021-10-24] MEDS ORDERED: diphenhydrAMINE 50 MG/ML SDV IVPUSH ONE (16:22)
[2021-10-24 19:12] VITALS: BP 160/75; PULSE 95
== END 2021-10-24 19:12 | disposition home or self-care (01) ==
LOC: JD.ED 15:46
DX: S06.0X0A Concussion without loss of consciousness, initial encounter (principal); E78.00 Pure hypercholesterolemia, unspecified; I10 Essential (primary) hypertension; E11.9 Type 2 diabetes mellitus without complications; Z88.8 Allergy status to other drugs, medicaments and biological substances; Z91.030 Bee allergy status; Z88.0 Allergy status to penicillin; Z91.048 Other nonmedicinal substance allergy status; Z79.899 Other long term (current) drug therapy; W22.8XXA Striking against or struck by other objects, initial encounter
CPT/HCPCS: 70450; 96374; 96375; 99283; J1200; J1885; J2765; J3490

== ENCOUNTER 2022-05-20 10:17 | Day surgery (SDC) | payer OTHER ==
[~2022-05-20 10:17] MED LIST: Lidocaine 1%/Sod Bicarbonate in NS 8.4% 1 ML Syringe IDERM PRN; Sodium Chloride 0.9% 10 ML Syringe FLUSH PRN; Sodium Chloride 0.9% 10 ML Syringe FLUSH SCH
[2022-05-20] MEDS: Lactated Ringers 1,000 ML IV SCH ×2 (10:30→13:32)
[2022-05-20] MEDS ORDERED: Propofol 200 MG/20 ML SDV ONE ×3 (11:10→12:38)
[2022-05-20] MEDS ORDERED: Midazolam 1 MG/ML 2 ML SDV ONE (11:10)
[2022-05-20] MEDS ORDERED: Ketamine 500 mg/10 ML MDV ONE (11:11)
[2022-05-20] MEDS ORDERED: fentaNYL 100 MCG/2 ML SDV ONE (11:11)
[2022-05-20] MEDS ORDERED: Lidocaine 1% 8 ML ONE (11:11)
[2022-05-20 15:23] VITALS: BP 111/70; PULSE 78
== END 2022-05-20 14:45 | disposition home or self-care (01) ==
LOC: JD.SDS 10:17
PROVIDERS: ATTEND Surgery
DX: Z12.11 Encounter for screening for malignant neoplasm of colon (principal); D12.2 Benign neoplasm of ascending colon; D12.4 Benign neoplasm of descending colon; D12.3 Benign neoplasm of transverse colon; K57.30 Diverticulosis of large intestine without perforation or abscess without bleeding; K64.8 Other hemorrhoids; F41.9 Anxiety disorder, unspecified; J45.909 Unspecified asthma, uncomplicated; E11.9 Type 2 diabetes mellitus without complications; I10 Essential (primary) hypertension; G47.30 Sleep apnea, unspecified; F32.A Depression, unspecified; K21.9 Gastro-esophageal reflux disease without esophagitis; G47.33 Obstructive sleep apnea (adult) (pediatric); E78.00 Pure hypercholesterolemia, unspecified; E03.9 Hypothyroidism, unspecified; G43.909 Migraine, unspecified, not intractable, without status migrainosus; Z86.010 Personal history of colon polyps; Z98.890 Other specified postprocedural states; Z79.899 Other long term (current) drug therapy; Z79.4 Long term (current) use of insulin; Z88.0 Allergy status to penicillin; Z88.6 Allergy status to analgesic agent
CPT/HCPCS: 45380; 82947; 88305; J2250; J2704; J3010; J3490; J7120; 00811

== ENCOUNTER 2023-10-11 11:27 | Emergency (ER) | payer OTHER ==
[2023-10-11 12:00] LABS: BASOPHILS PERCENT AUTO 0.4 % (0.0-1.0); EOSINOPHILS ABSOLUTE AUTO 0.2 K/mm3 (0.0-0.4); EOSINOPHILS PERCENT AUTO 1.8 % (0.0-6.0); HEMATOCRIT 49.7 % (42.0-52.0); HEMOGLOBIN 16.7 gm/dl (14.0-18.0); IMMATURE GRAN ABSOLUTE AUTO 0.03 K/mm3 (0.00-0.05); IMMATURE GRAN PERCENT AUTO 0.3 % (0.0-0.4); LYMPHOCYTES ABSOLUTE AUTO 2.6 K/mm3 (1.0-4.8); LYMPHOCYTES PERCENT AUTO 23.5 % (24.0-44.0); MEAN CORPUSCULAR HEMOGLOBIN 25.6 pg (28.0-32.0); MEAN CORPUSCULAR HGB CONC 33.6 g/dl (32.0-36.0); MEAN CORPUSCULAR VOLUME 76.1 fl (83.0-99.0); MEAN PLATELET VOLUME 8.5 fl (9.4-12.4); MONOCYTES ABSOLUTE AUTO 0.9 K/mm3 (0.0-0.8); MONOCYTES PERCENT AUTO 7.7 % (0.0-8.0); NEUTROPHILS ABSOLUTE AUTO 7.3 K/mm3 (1.8-7.7); NEUTROPHILS PERCENT AUTO 66.3 % (41.0-71.0); PLATELET COUNT,PLT 216 K/mm3 (150-400); RED BLOOD CELL COUNT 6.53 M/mm3 (4.52-5.90)
[2023-10-11] MEDS: Albuterol/Ipratropium 3.0-0.5 MG/3 ML Neb Soln NEB ONE (12:05)
[2023-10-11 12:26] LABS: A/G RATIO 1.3 (1-2); ALANINE AMINOTRANSFERASE,ALT 27 U/L (16-63); ALBUMIN 4.1 g/dl (3.4-5.0); ALKALINE PHOSPHATASE 98 U/L (46-116); ASPARTATE AMNIOTRANSFERASE,AST 13 U/L (15-37); BILIRUBIN TOTAL 0.6 mg/dL (0.2-1.0); BLOOD UREA NITROGEN,BUN 18 mg/dL (7-18); BUN/CREATININE RATIO 12.9 (14-18); CALCIUM 9.4 mg/dL (8.5-10.1); CARBON DIOXIDE,CO2 26 mEq/L (21-32); CHLORIDE,CL 101 mEq/L (98-107); CREATININE 1.4 mg/dL (0.7-1.3); EST CRCL DRUG DOSING (CG) 64.21 mL/min; ESTIMATED GFR 58 mL/min (>60); GLUCOSE RANDOM 274 mg/dL (70-99); PROTEIN TOTAL,TP 7.2 g/dl (6.4-8.2); SODIUM,NA 136 mEq/L (136-145)
[2023-10-11 12:29] LABS: TROPONIN I HIGH SENSITIVITY < 4 pg/mL (<=76)
[2023-10-11 13:21] VITALS: BP 122/91; PULSE 87
== END 2023-10-11 13:15 | disposition home or self-care (01) ==
LOC: JD.ED 11:27
DX: J45.901 Unspecified asthma with (acute) exacerbation (principal); E78.00 Pure hypercholesterolemia, unspecified; I10 Essential (primary) hypertension; E11.9 Type 2 diabetes mellitus without complications; E03.9 Hypothyroidism, unspecified; Z79.899 Other long term (current) drug therapy; Z79.891 Long term (current) use of opiate analgesic; Z79.4 Long term (current) use of insulin; Z88.0 Allergy status to penicillin; Z88.8 Allergy status to other drugs, medicaments and biological substances; Z91.018 Allergy to other foods; Z91.030 Bee allergy status
CPT/HCPCS: 36415; 71046; 71046-26; 80053; 82947; 84484; 85025; 85379; 94640; 99285; J7620-GY

== ENCOUNTER 2024-01-20 16:37 | Emergency (ER) | payer OTHER ==
[2024-01-20 17:01] VITALS: PULSE 90
[2024-01-20 19:07] VITALS: BP 140/90
== END 2024-01-20 19:18 | disposition home or self-care (01) ==
LOC: JD.ED 16:37
DX: S20.211A Contusion of right front wall of thorax, initial encounter (principal); S00.83XA Contusion of other part of head, initial encounter; J32.9 Chronic sinusitis, unspecified; I10 Essential (primary) hypertension; J45.909 Unspecified asthma, uncomplicated; E78.00 Pure hypercholesterolemia, unspecified; E11.9 Type 2 diabetes mellitus without complications; Z88.0 Allergy status to penicillin; Z91.030 Bee allergy status; Z91.048 Other nonmedicinal substance allergy status; Z88.8 Allergy status to other drugs, medicaments and biological substances; Z79.4 Long term (current) use of insulin; Z79.899 Other long term (current) drug therapy; X58.XXXA Exposure to other specified factors, initial encounter
CPT/HCPCS: 70486; 70486-26; 71101-26-RT; 71101-RT; 99285